=== PATIENT | female | born 1960 | race Two or more races ===

== ENCOUNTER 2022-06-03 14:09 | Inpatient (IN) | payer OTHER ==
[~2022-06-03] VITALS: Ht 165.1 cm; Wt 87.5 kg
[2022-06-04] MEDS ORDERED: CLARITIN5 MG PO (14:05)
[2022-06-04] MEDS ORDERED: B12 ACTIVE1000 MCG PO (14:05)
[2022-06-09] MEDS ORDERED: FAMOTIDINE20 MG (13:55)
[2022-06-09] MEDS ORDERED: FLONASE16 GM (13:55)
[2022-06-09] MEDS ORDERED: OMEPRAZOLE40 MG (13:55)
[2022-06-09] MEDS ORDERED: DIETHYLPROPION75 MG (13:55)
[2022-06-09] MEDS ORDERED: MONTELUKAST SOD10 MG (13:55)
[2022-06-09] MEDS ORDERED: B-121000 MC1 (13:55)
== END 2022-06-11 11:45 | disposition home or self-care (01) | DRG 331 ==
LOC: SURG 06-09 09:35 → O/R 06-09 09:35 → SURG 06-09 11:00
PROVIDERS: ADMIT Colon & Rectal Surgery; ATTEND Colon & Rectal Surgery
PROC: 0DBP4ZZ Excision of Rectum, Percutaneous Endoscopic Approach (ICD-10-PCS; 2022-06-09)
PROC: 0DJD8ZZ Inspection of Lower Intestinal Tract, Via Natural or Artificial Opening Endoscopic (ICD-10-PCS; 2022-06-09)
PROC: 0DTN4ZZ Resection of Sigmoid Colon, Percutaneous Endoscopic Approach (ICD-10-PCS; principal; 2022-06-09 11:00)
DX: K57.21 Diverticulitis of large intestine with perforation and abscess with bleeding (principal); Z20.822 Contact with and (suspected) exposure to COVID-19